=== PATIENT | female | born 2000 | race Caucasian/White ===

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

== ENCOUNTER → 2019-04-21 18:46 | Outpatient (CLI) | payer BC, SELFPAY ==
[2019-04-21 09:07] VITALS: BMI 20.3
--- NOTE | 2019-04-21 18:51 | US_ITS ---
STUDY: ULTRASOUND OF THE FEMALE PELVIS - COMPLETE REASON FOR EXAM: Female, 18 years old. IUD check, mild discomfort LMP: TECHNIQUE: Transabdominal and Transvaginal TECHNICAL QUALITY: Adequate. COMPARISON: None. FINDINGS: The uterus is anteverted and is in a midline position. The uterus measures 7.0 x 5.2 x 3.4 cm. Normal uterine cervix. The endometrium measures 2 mm in thickness, and is hyperechoic. There is no demonstrated endometrial mass. There is no demonstrated myometrial mass. IUD in the expected location. The right ovary is visualized. The right ovary measures 3.1 x 2.5 x 2.4 cm. Simple right ovary cyst measuring 16 x 13 x 12 mm. There is no visualized right adnexal mass or complex lesion. There is normal arterial and normal venous vascularity. The left ovary is visualized. The left ovary measures 3.3 x 3.0 x 2.4 cm. Simple left ovary cyst measuring 17 x 17 x 14 mm. There is no visualized left adnexal mass or complex lesion. There is normal arterial and normal venous vascularity. There is no fluid in the cul-de-sac. The pre void volume of the bladder was 366.13 ml. Polycystic ovary disease: No. US/Transvaginal Non- IMPRESSION: Small bilateral simple ovary cysts as described. IUD in the expected location. Electronically Signed: Liam Crocker MD at 19:34 EDT Tel , Service support ,
--- NOTE | 2019-04-21 18:51 | US_ITS ---
STUDY: ULTRASOUND OF THE FEMALE PELVIS - COMPLETE REASON FOR EXAM: Female, 18 years old. IUD check, mild discomfort LMP: TECHNIQUE: Transabdominal and Transvaginal TECHNICAL QUALITY: Adequate. COMPARISON: None. FINDINGS: The uterus is anteverted and is in a midline position. The uterus measures 7.0 x 5.2 x 3.4 cm. Normal uterine cervix. The endometrium measures 2 mm in thickness, and is hyperechoic. There is no demonstrated endometrial mass. There is no demonstrated myometrial mass. IUD in the expected location. The right ovary is visualized. The right ovary measures 3.1 x 2.5 x 2.4 cm. Simple right ovary cyst measuring 16 x 13 x 12 mm. There is no visualized right adnexal mass or complex lesion. There is normal arterial and normal venous vascularity. The left ovary is visualized. The left ovary measures 3.3 x 3.0 x 2.4 cm. Simple left ovary cyst measuring 17 x 17 x 14 mm. There is no visualized left adnexal mass or complex lesion. There is normal arterial and normal venous vascularity. There is no fluid in the cul-de-sac. The pre void volume of the bladder was 366.13 ml. Polycystic ovary disease: No. US/Pelvic (Non ) IMPRESSION: Small bilateral simple ovary cysts as described. IUD in the expected location. Electronically Signed: Liam Crocker MD at 19:34 EDT Tel , Service support ,
== END ==
PROVIDERS: Family Provider Pediatrics; PCP Pediatrics; Referring Provider Obstetrics & Gynecology; Visit Provider Obstetrics & Gynecology
DX: R10.2 Pelvic and perineal pain (principal)
CPT/HCPCS: 76830; 76856; 93976

== ENCOUNTER 2021-02-02 16:00 | Emergency (ER) | payer OTHER, SELFPAY ==
[2019-04-21 09:07] VITALS: BMI 20.3
[2021-02-02 16:01] VITALS: BP 151/81; PULSE 96; RESP 14; TEMP 36.3; O2SAT 99; BMI 21.9
--- NOTE | 2021-02-02 16:04 | EKG12_ITS ---
Test Reason : CP Blood Pressure : / mmHG Vent. Rate : 089 BPM Atrial Rate : 089 BPM P-R Int : 136 ms QRS Dur : 080 ms QT Int : 342 ms P-R-T Axes : 076 087 028 degrees QTc Int : 416 ms Normal sinus rhythm with sinus arrhythmia Normal ECG Confirmed by CAESAR BURDEN, TOR ([id number]), metropolitan editor KATHYA BAKER ([id number]) on 02/06/2021 12:31:44 PM Referred By: NEGAR Confirmed By:TOR MAYNARD MD
--- NOTE | 2021-02-02 16:36 | RAD_ITS ---
INDICATION: Chest pain EXAMINATION/TECHNIQUE: X-RAY - XR Chest 1 View COMPARISON: None. FINDINGS: Hyperinflated lungs. Lungs are otherwise clear. The cardiomediastinal silhouette is unremarkable. No pleural effusion or pneumothorax. No acute osseous abnormalities. RAD/Chest 1 View (Portable) IMPRESSION: No acute radiographic abnormalities. Hyperinflated lungs which can be seen in asthma. Electronically Signed: Fausto Garcia MD at 17:11 EDT Tel , Service support ,
--- NOTE | 2021-02-02 17:47 | ED.VIS.CHEST ---
HPI History of Present Illness Chief Complaint: Chest Pain Narrative Narrative: 20-year-old [facility] [employer] student with no local primary care physician. She reports that she has had intermittent chest pain for the past 6 months. States that it began again this morning when she woke up at 11:00. It is an aching, stabbing pain that is 9 out of 10 at worst and 3 out of 10 currently. Is worsened by bending forward or leaning back. Moving her arm across her chest. Even brushing her teeth this morning. It is relieved by nothing. She reports that when the pain is severe it makes her short of breath. She denies any dyspnea on exertion. No nausea, vomiting, or diaphoresis. Patient is on control pills. She does not smoke. No personal family history of DVT. No recent travel. No ankle swelling or calf pain. [facility] Medical History (Updated 02/02/21 @ 17:[address] Jacobo Carrillo MD) No significant medical problems Home Medications levonorgestrel 20 mcg/24 hours (6 yrs) 52 mg intrauterine device 1 device INTRAUTERINE ONCE 04/21/19 [History Last Taken Unknown] naproxen 500 mg tablet 500 mg PO BID-TID PRN #60 tab 04/21/19 [Rx Last Taken Unknown] naproxen 500 mg PO BID #14 tab 02/02/21 [Rx Last Taken Unknown] Allergy/AdvReac Type Severity Reaction Status Date / Time No Known Allergies Allergy Verified 02/02/21 16:03 Surgical History No significant past surgical history Social History Smoking Status: Never smoker alcohol intake: never substance use type: does not use caffeine: Yes what type of physical activity do you participate in: walking seatbelt use: always do you feel safe at home: Yes additional social history: Sophomore at [employer] ROS ROS ED Constitutional Constitutional ED: Denies chills, fever(s) or sweats Eyes Eyes: Denies change in vision ENT ENT ED: Denies sore throat Cardiovascular Cardiovascular: Reports chest pain Respiratory/Chest Respiratory/Chest: Reports dyspnea; Denies cough or dyspnea on exertion Gastrointestinal Gastrointestinal: Denies abdominal pain, diarrhea, melena, nausea or vomiting Genitourinary Genitourinary ED: Denies dysuria or urinary frequency Musculoskeletal Musculoskeletal: Denies myalgias Integumentary Denies rash Neurologic Neurologic: Denies headache(s), paresthesias or weakness EXAM Physical Exam Const Vital Signs: 02/02/21 16:01 Temperature 97.4 F L Temperature Source Temporal Pulse Rate 96 Respiratory Rate 14 Blood Pressure 151/81 H Blood Pressure Mean 104 Pulse Ox 99 Oxygen Delivery Method Room Air Positive well nourished and well developed General Appearance ED: well developed HEENT Reports normocephalic and head/scalp atraumatic Eyes PERRL Neck no lymphadenopathy, supple and no JVD General: Negative for tenderness Resp normal respiratory effort and clear to auscultation bilaterally Resp Narrative: Moderate tenderness to palpation of the costochondral margin bilaterally. This does reproduce her pain. Cardio regular rate, regular rhythm and no murmurs GI normal to inspection, nondistended, normoactive bowel sounds and non-tender GI Narrative: No guarding, rebound, or peritoneal signs. Palpation: soft Back/Spine Back/Spine Narrative: Nontender. Extremity General Extremety ED: Negative for edema or tenderness General Extremity: Negative for edema Neuro oriented x3, CN's II-XII intact bilaterally and no sensory deficits noted Sensorium / Orientation: alert Motor Exam: strength 5/5 throughout Psych mental status grossly normal Skin no rashes or lesions noted MDM MDM Radiography Diagnostic Testing: Radiology Impression Chest X-Ray 02/02/21 16:36 IMPRESSION: No acute radiographic abnormalities. Hyperinflated lungs which can be seen in asthma. Electronically Signed: Fausto Garcia MD at 17:11 EDT Tel , Service support , EKG Initial EKG: Attestation: I personally reviewed and interpreted this EKG as follows: Interpretation: Sinus Arrythmia and Non-Specific ST Changes Comments: Sinus arrhythmia at 89. Nonspecific ST changes. Treatment and Re-Evaluation Comments:: Emergency department course: Patient's pain is very atypical. Is reproduced with movement and palpation. I do not feel that any further evaluation is necessary at this time. She is given a dose of naproxen p.o. Treatment plan: Patient will be discharged prescription for naproxen. Instructed to take this regularly. Follow-up with Dr. Paul Parikh in 1 week for another exam. Return to the emergency department for any worsening symptoms. This note was generated with [employer] dictation software. It may contain incorrect words, spelling, and punctuation that were not noted in review of the chart prior to signing. Discharge Plan Triage Chief Complaint: Chest Pain ED Provider: Jacobo Carrillo Dx/Rx/DC Orders Clinical Impression: Atypical chest pain Instructions: ED Chest Wall Pain, Costochondritis Prescriptions: New naproxen 500 MG tablet 500 mg PO BID Qty: 14 RF: 0 No Action Mirena 20 mcg/24 hours (5 yrs) 52 mg intrauterine device 1 device intrauterine ONCE RF: 0 naproxen 500 mg tablet 500 mg PO BID-TID PRN (Reason: pain) Qty: 60 RF: 2 Primary Care Provider: Rory Atkins Referrals: Rory Atkins MD [Primary Care Provider] - Tono Marcial MD [NON-STAFF] - 1 Week
[2021-02-02] MEDS: Naproxen 250 MG Tablet 500 MG PO (18:23)
[2021-02-02 18:26] VITALS: RESP 16
== END 2021-02-02 18:28 | disposition home or self-care (01) ==
LOC: ED 18:07
PROVIDERS: Emergency Provider Emergency Medicine; PCP Pediatrics
DX: R07.89 Other chest pain (principal); R06.02 Shortness of breath; Z79.3 Long term (current) use of hormonal contraceptives; Z79.1 Long term (current) use of non-steroidal anti-inflammatories (NSAID); Z79.899 Other long term (current) drug therapy
CPT/HCPCS: 71045; 93005; 99283